=== PATIENT | female | born 1995 | race Native Hawaiian/Other Pacific Islander ===

== ENCOUNTER 2021-08-18 12:48 | Emergency (ER) | payer OTHER ==
[~2021-08-18] VITALS: Ht 154.9 cm; Wt 54.4 kg
[2021-08-18 14:40] VITALS: BP 134/78; TEMP 97.7
== END 2021-08-18 14:40 | disposition home or self-care (01) ==
LOC: ED 12:48
DX: L03.317 Cellulitis of buttock (principal); T63.301A Toxic effect of unspecified spider venom, accidental (unintentional), initial encounter; X58.XXXA Exposure to other specified factors, initial encounter; Y92.89 Other specified places as the place of occurrence of the external cause
CPT/HCPCS: 96372; 99283; J0696; J1885

== ENCOUNTER 2023-02-22 12:41 | Emergency (ER) | payer OTHER ==
[~2023-02-22] VITALS: Ht 154.9 cm; Wt 61.2 kg
[2023-02-22 16:46] VITALS: BP 127/73; TEMP 98
== END 2023-02-22 16:46 | disposition home or self-care (01) ==
LOC: ED 12:41
DX: O03.9 Complete or unspecified spontaneous abortion without complication (principal); Z72.0 Tobacco use
CPT/HCPCS: 81000; 81025; 84702; 99284